=== PATIENT | female | born 1975 | race Two or more races ===

== ENCOUNTER 2018-10-06 01:44 | Emergency (ER) | payer SELFPAY ==
[~2018-10-06] VITALS: Ht 152.4 cm; Wt 65.9 kg
[2018-10-06] MEDS ORDERED: VITAD1000T PO (01:51)
[2018-10-06] MEDS ORDERED: ACET-683 PO (01:53)
[2018-10-06] MEDS ORDERED: NS 1,000 ML IV ONE (03:30)
[2018-10-06] MEDS ORDERED: KETOROLAC 30 MG/ML VIAL (J1885) IV ONE (03:30)
[2018-10-06] MEDS ORDERED: METOCLOPRAMIDE INJ 10MG/2ML VIAL (J2765) IV ONE (03:30)
[2018-10-06] MEDS ORDERED: diphenhydrAMINE INJ 50MG/ML VIAL (J1200) IV ONE (03:30)
[2018-10-06 03:57] LABS: BASO % 0.6 % (0.0-1.0); EOS # 0.4 10^3/uL (0.0-0.50); EOS % 6.1 % (0.0-3.0); HEMATOCRIT 40.3 % (36.0-47.0); HEMOGLOBIN 12.9 g/dl (12.0-15.5); LYMPH # 3.7 10^3/uL (1.5-4.5); LYMPH % 52.5 % (24.0-44.0); MEAN CORPUSCULAR HEMOGLOBIN 26.7 pg (27.0-33.0); MEAN CORPUSCULAR VOLUME 83.4 fl (80.0-96.0); MONO # 0.6 10^3/uL (0.0-0.8); MONO % 8.7 % (0.0-5.0); NEUTROPHILS # 2.3 10^3/uL (1.8-7.7); PLATELET COUNT, AUTOMATED 294 10^3/uL (150-450); RED BLOOD COUNT 4.83 10^6/uL (4.00-5.40); WHITE BLOOD COUNT 7.1 10^3/uL (4.0-10.0)
[2018-10-06 04:02] LABS: ALBUMIN 3.6 GM/DL (3.2-5.2); ALT/SGPT 33 U/L (12-78); BILIRUBIN,TOTAL 0.2 MG/DL (0.2-1.0); BLOOD UREA NITROGEN 23 MG/DL (7-18); CALCIUM LEVEL 8.4 MG/DL (8.5-10.1); CARBON DIOXIDE LEVEL 27 MEQ/L (21-32); CHLORIDE LEVEL 108 MEQ/L (98-107); CREATININE FOR GFR 0.66 MG/DL (0.55-1.30); GLOMERULAR FILTRATION RATE > 60.0 (>58); GLUCOSE, FASTING 97 MG/DL (70-100); POTASSIUM SERUM 4.3 MEQ/L (3.5-5.1); SODIUM LEVEL 142 MEQ/L (136-145); TOTAL PROTEIN 7.3 GM/DL (6.4-8.2)
--- NOTE | 2018-10-06 04:39 | REPVR ---
EXAM: CT Head Without Contrast EXAM DATE/TIME: 10/06/2018 3:25 AM CLINICAL HISTORY: 43 years old, female; Pain; Headache not specified; Additional info: Right sided headache, vertigo TECHNIQUE: Imaging protocol: Axial computed tomography images of the head without contrast. Radiation optimization: All CT scans at this facility use at least one of these dose optimization techniques: automated exposure control; mA and/or kV adjustment per patient size (includes targeted exams where dose is matched to clinical indication); or iterative reconstruction. COMPARISON: No relevant prior studies available. FINDINGS: Brain: The white-sutherland differentiation is preserved demonstrating no acute territorial type infarct. No acute intracranial hemorrhage is seen. No intracranial mass effect. Midline shift: There is no midline shift. Ventricles: No ventriculomegaly. Bones/joints: The calvarium demonstrates no evidence for a depressed fracture. Sinuses: Visualized sinuses are unremarkable. No fluid levels. Mastoid air cells: No mastoid effusion. Soft tissues: Unremarkable. IMPRESSION: No acute intracranial abnormality. Electronically signed by: Adrian Gonsalez On 10/06/2018 04:38:58 AM
[2018-10-06] MEDS ORDERED: MECLIZINE 25 MG TABLET PO ONE (06:30)
[2018-10-06 07:30] VITALS: BP 108/69
[2018-10-06] MEDS ORDERED: MECL-68 PO (07:33)
--- NOTE | 2018-10-06 17:34 | ECGEPIP ---
[facility] - ED Test Date: 2018-10-06 Pat Name: ZANE QUEVEDO Department: Room: - Gender: Female Learning And Development Intern: JULIAN : 1975 Requested By: CATALINO Salinas Order Number: [id number] Reading MD: Dahlia Rangel Measurements Intervals [place] Rate: 73 P: 44 LA: 169 QRS: 3 QRSD: 88 T: 20 QT: 365 QTc: 403 Interpretive Statements SINUS RHYTHM LOW QRS VOLTAGE IN PRECORDIAL LEADS POSSIBLE ANTERIOR MYOCARDIAL INFARCTION, PROBABLY OLD No prior Electronically Signed on 10-06-2018 17:34:17 EDT by Dahlia Rangel
== END 2018-10-06 07:53 | disposition home or self-care (01) ==
LOC: M ED 01:44
DX: G43.909 Migraine, unspecified, not intractable, without status migrainosus (principal); R42 Dizziness and giddiness; Z88.5 Allergy status to narcotic agent; Z88.8 Allergy status to other drugs, medicaments and biological substances; Z79.899 Other long term (current) drug therapy
CPT/HCPCS: 36415; 70450; 80053; 85025; 93005; 96361; 96374; 96375; 99284; J1200; J1885; J2765